=== PATIENT | female | born 1955 | race Caucasian/White ===

== ENCOUNTER 2021-08-24 09:49 | Day surgery (SDC) | payer BC ==
[2012-03-12 09:33] VITALS: BP 174/103
[2021-08-24] MEDS ORDERED: BUPIVACAINE 0.5% VIAL IJ ONE (09:50)
[2021-08-24] MEDS ORDERED: Depo-Medrol 40 MG/ML IM ONE (09:50)
[2021-08-24] MEDS ORDERED: Lactated Ringers 1,000 ML IV ONE (11:07)
[2021-08-24] MEDS ORDERED: DIPRIVAN 200 MG/20 ML IV ONE (11:46)
--- NOTE | 2021-08-24 13:14 | XRAY ---
Indication: Right knee injection. Intraoperative fluoroscopy provided for 9 seconds. Single digital spot image submitted for interpretation demonstrates needle tip projecting over the right femur intercondylar notch. Small amount of contrast injected for needle tip placement. Correlate with intraoperative findings/report.
--- NOTE | 2021-08-24 13:15 | XRAY ---
Indication: Left knee injection. Intraoperative fluoroscopy provided for 5 seconds. Single digital spot image submitted for interpretation demonstrates needle tip projecting over the left femur intercondylar notch. Small amount of contrast injected for needle tip placement. Correlate with intraoperative findings/report.
--- NOTE | 2021-08-24 15:32 | XRAY ---
9 seconds of fluoroscopy was used in surgery for a right intra-articular knee injection.
--- NOTE | 2021-08-24 15:33 | XRAY ---
5 seconds of fluoroscopy was used in surgery for a left intra-articular knee injection.
== END 2021-08-24 11:51 | disposition home or self-care (01) ==
LOC: SDC-PAIN 09:49
PROVIDERS: ATTEND Psychiatry & Neurology Pain Medicine
DX: M17.0 Bilateral primary osteoarthritis of knee (principal); E11.9 Type 2 diabetes mellitus without complications
CPT/HCPCS: 20610; 73560; 77002; 82947; J1030; J2704; Q9966

== ENCOUNTER 2023-03-13 09:22 | Day surgery (SDC) | payer BC ==
[2012-03-12 09:33] VITALS: BP 174/103
[2023-03-13] MEDS ORDERED: Depo-Medrol 40 MG/ML IM ONE (09:23)
[2023-03-13] MEDS ORDERED: Sodium Chloride 0.9(Preservative Free) 10 ML IJ ONE (09:23)
[2023-03-13] MEDS ORDERED: LIDOCAINE HCL 1% 50 MG/5 ML VL PF IJ ONE (09:23)
[2023-03-13] MEDS ORDERED: DIPRIVAN 200 MG/20 ML IV ONE ×2 (11:23→11:33)
[2023-03-13] MEDS ORDERED: Lactated Ringers 1,000 ML IV ONE (12:13)
--- NOTE | 2023-03-13 13:51 | XRAY ---
Indication: Lumbar CHENG. Intraoperative fluoroscopy provided for 52 seconds. 9 digital spot images submitted for interpretation demonstrates posterior needle tip projecting posterior to last lumbar segment. Small amount of contrast injected for needle tip placement.. Correlate with intraoperative findings/report.
--- NOTE | 2023-03-13 14:48 | XRAY ---
52 seconds of fluoroscopy was used in surgery for a lumbar CHENG.
== END 2023-03-13 12:05 | disposition home or self-care (01) ==
LOC: SDC-PAIN 09:22
PROVIDERS: ATTEND Psychiatry & Neurology Pain Medicine
DX: M54.16 Radiculopathy, lumbar region (principal); E11.9 Type 2 diabetes mellitus without complications; Z79.899 Other long term (current) drug therapy
CPT/HCPCS: 62323; 72100; 77003; 82947; J1030; J2001; J2704; Q9966

== ENCOUNTER 2023-05-02 09:34 | Day surgery (SDC) | payer BC ==
[2012-03-12 09:33] VITALS: BP 174/103
[2023-05-02] MEDS ORDERED: BUPIVACAINE 0.5% VIAL IJ ONE (09:35)
[2023-05-02] MEDS ORDERED: Depo-Medrol 40 MG/ML IM ONE (09:35)
[2023-05-02] MEDS ORDERED: DIPRIVAN 200 MG/20 ML IV ONE (10:42)
--- NOTE | 2023-05-02 12:34 | XRAY ---
Indication: Bilateral SI joint injection. Intraoperative fluoroscopy provided for 16 seconds. 4 digital spot image submitted for interpretation demonstrates posterior needle tip projecting over the expected left and right SI joint. Correlate with intraoperative findings/report.
[2023-05-02] MEDS ORDERED: Lactated Ringers 1,000 ML IV ONE (15:23)
--- NOTE | 2023-05-03 10:59 | XRAY ---
16 seconds of fluoroscopy was used in surgery for bilateral sacroiliac joint injections.
== END 2023-05-02 11:15 | disposition home or self-care (01) ==
LOC: SDC-PAIN 09:34
PROVIDERS: ATTEND Psychiatry & Neurology Pain Medicine
DX: M46.1 Sacroiliitis, not elsewhere classified (principal); E11.9 Type 2 diabetes mellitus without complications
CPT/HCPCS: 27096; 72202; 77002; 82947; J1030; J2704; G0260